=== PATIENT | male | born 1990 | race American Indian/Alaskan Native ===

== ENCOUNTER 2016-02-11 02:13 | Emergency (ER) | payer OTHER ==
[2016-02-11 02:36] VITALS: BP 153/91
[2016-02-11] MEDS ORDERED: MOTRIN ONE (03:20)
[2016-02-11] MEDS ORDERED: FLEXERIL ONE (03:20)
[2016-02-11] MEDS ORDERED: FLEXERIL PO ONE (03:24)
[2016-02-11] MEDS ORDERED: MOTRIN PO ONE (03:24)
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
== END 2016-02-11 04:57 | disposition home or self-care (01) ==
LOC: ED 02:13
DX: R07.81 Pleurodynia (principal); M25.50 Pain in unspecified joint; Z91.018 Allergy to other foods; V49.9XXA Car occupant (driver) (passenger) injured in unspecified traffic accident, initial encounter; Y92.488 Other paved roadways as the place of occurrence of the external cause; Y93.89 Activity, other specified; Y99.8 Other external cause status
CPT/HCPCS: 71020

== ENCOUNTER 2017-08-26 05:45 | Emergency (ER) | payer SELFPAY ==
[2017-08-26] MEDS ORDERED: TYLENOL ONE (05:50)
[2017-08-26 05:51] VITALS: BP 140/78
[2017-08-26] MEDS ORDERED: TYLENOL PO ONE (05:51)
[2017-08-26] MEDS ORDERED: XYLOCAINE 1% MPF 5 mL INFILTRATI ONE (09:36)
[2017-08-26] MEDS ORDERED: NORCO 5/325 PO ONE (09:54)
--- NOTE | 2017-08-26 09:59 | Emergency Department Report ---
ED ENT HPI - General Chief complaint: Dental/Oral Stated complaint: TOOTHACHE WITH FACIAL SWELLING Time Seen by Provider: 08/26/17 09:26 Source: patient Mode of arrival: Ambulatory Limitations: No Limitations - History of Present Illness Initial comments: Mr Chung is a 27 year-old man who presents with jaw swelling. Swelling over left lower jaw for one day. Painful. No troubel breathing. no trouble swallowing. No fever. No neck pain. Has not seen a dentist for this. No other complaints. - Related Data Previous Rx's Medication Instructions Recorded Last Taken Type Amoxicillin [Trimox CAP] 500 mg PO Q8H #30 capsule 09/30/15 Unknown Rx traMADol [Ultram 50 MG tab] 50 mg PO Q6HR PRN #15 tablet 09/30/15 Unknown Rx Cyclobenzaprine [Flexeril] 10 mg PO TID PRN #20 tablet 02/11/16 Unknown Rx Ibuprofen [Motrin 800 MG tab] 800 mg PO Q8HR PRN #20 tablet 02/11/16 Unknown Rx Allergies Allergy/AdvReac Type Severity Reaction Status Date / Time lactose Allergy Unknown Verified 01/30/15 19:21 ED Dental HPI - General Chief complaint: Dental/Oral Stated complaint: TOOTHACHE WITH FACIAL SWELLING Time Seen by Provider: 08/26/17 09:26 Source: patient Mode of arrival: Ambulatory Limitations: No Limitations - Related Data Previous Rx's Medication Instructions Recorded Last Taken Type Amoxicillin [Trimox CAP] 500 mg PO Q8H #30 capsule 09/30/15 Unknown Rx traMADol [Ultram 50 MG tab] 50 mg PO Q6HR PRN #15 tablet 09/30/15 Unknown Rx Cyclobenzaprine [Flexeril] 10 mg PO TID PRN #20 tablet 02/11/16 Unknown Rx Ibuprofen [Motrin 800 MG tab] 800 mg PO Q8HR PRN #20 tablet 02/11/16 Unknown Rx Allergies Allergy/AdvReac Type Severity Reaction Status Date / Time lactose Allergy Unknown Verified 01/30/15 19:21 ED Review of Systems ROS: Stated complaint: TOOTHACHE WITH FACIAL SWELLING Other details as noted in HPI Comment: All other systems reviewed and negative ED Past Medical Hx - Past Medical History Previous Medical History?: No - Surgical History Past Surgical History?: No - Social History Smoking Status: Never Smoker Substance Use Type: None - Medications Home Medications: Home Medications Medication Instructions Recorded Confirmed Last Taken Type Amoxicillin [Trimox CAP] 500 mg PO Q8H #30 capsule 09/30/15 Unknown Rx traMADol [Ultram 50 MG tab] 50 mg PO Q6HR PRN #15 tablet 09/30/15 Unknown Rx Cyclobenzaprine [Flexeril] 10 mg PO TID PRN #20 tablet 02/11/16 Unknown Rx Ibuprofen [Motrin 800 MG tab] 800 mg PO Q8HR PRN #20 tablet 02/11/16 Unknown Rx ED Physical Exam - General Limitations: No Limitations General appearance: alert, in no apparent distress - Head Head exam: Present: atraumatic, normocephalic - Eye Eye exam: Present: normal appearance, EOMI - ENT ENT exam: Present: normal exam, normal orophraynx, mucous membranes moist, other (tooth 18 fractured. gum line swelling, fluctuance. No oropharyngeal swelling. no cervical or submandibular LNs palpable/tender) - Neck Neck exam: Present: normal inspection, full ROM. Absent: tenderness, meningismus, lymphadenopathy, thyromegaly - Respiratory Respiratory exam: Present: normal lung sounds bilaterally. Absent: wheezes, rales, rhonchi, stridor - Cardiovascular Cardiovascular Exam: Present: regular rate, normal rhythm - Neurological Exam Neurological exam: Present: alert, oriented X3 - Psychiatric Psychiatric exam: Present: normal affect, normal mood - Skin Skin exam: Present: warm, dry, intact ED Course Vital Signs 08/26/17 05:48 Temperature 99.4 F Pulse Rate 84 Respiratory 16 Rate Blood Pressure 140/78 O2 Sat by Pulse 99 Oximetry - I & D Left Lower Jaw Type of Procedure: Simple Site: tooth 18 periapical abscess Blade Size: 18g needle Progress: 2mL 1% lidocaine without epi. 2mL pus expressed. tolerated procedure well ED Medical Decision Making - Medical Decision Making Mr Chung is a 27 year-old man who presents with dental abscess. no fever. No trouble swallowing. No oropharyngeal swelling, no neck swelling. Incised and drained per note. PCN 500mg QID x 7 days. DC to home. Critical care attestation.: If time is entered above; I have spent that time in minutes in the direct care of this critically ill patient, excluding procedure time. ED Disposition Clinical Impression: Dental abscess Disposition: DC-01 TO HOME OR SELFCARE Is pt being admited?: No Condition: Stable Instructions: Dental Abscess (ED) Referrals: PRIMARY CARE, [Primary Care Provider] - 3-5 Days
[2017-08-26] MEDS ORDERED: VEETIDS PO ONE (10:30)
== END 2017-08-26 10:15 | disposition home or self-care (01) ==
LOC: ED 05:45
DX: K04.7 Periapical abscess without sinus (principal); Z91.011 Allergy to milk products
CPT/HCPCS: 99282

== ENCOUNTER 2017-09-16 01:13 | Emergency (ER) | payer SELFPAY ==
[2017-09-16 01:31] VITALS: BP 116/62
[2017-09-16] MEDS ORDERED: MOTRIN PO ONE (05:26)
[2017-09-16] MEDS ORDERED: FLEXERIL PO ONE (05:27)
--- NOTE | 2017-09-16 06:25 | Emergency Department Report ---
ED Back Pain/Injury HPI - General Chief Complaint: Back Pain/Injury Stated Complaint: BACK PAIN Time Seen by Provider: 09/16/17 05:25 Source: patient Limitations: No Limitations - History of Present Illness Initial Comments: Patient 27-year-old male who presents for low back pain states he strained his back while trying to lift a heavy box pre-days ago pain described as spasm 14 and radiating to left lower leg pain relieved by rest pain exacerbated by prolonged standing and walking climbing stairs there is no weakness no numbness no paresthesias no loss or decrease in bowel or bladder function Complaint: back pain Onset/Timin -: Sudden, days(s) Similar Symptoms Previously: Yes Place: home Radiation: none Severity: moderate Severity scale (0 -10): 4 Quality: aching Consistency: intermittent Worsens With: other (rest ) Context: while lifting, turning/twisting, bending Associated Symptoms: weakness. denies: numbness, difficulty walking, cough, incontinence, fever/chills, headaches, abdominal pain, loss of appetite, seizure , shortness of breath, syncope Treatments Prior to Arrival: cold therapy, heat therapy, NSAIDS - Related Data Previous Rx's Medication Instructions Recorded Last Taken Type Amoxicillin [Trimox CAP] 500 mg PO Q8H #30 capsule 09/30/15 Unknown Rx traMADol [Ultram 50 MG tab] 50 mg PO Q6HR PRN #15 tablet 09/30/15 Unknown Rx Cyclobenzaprine [Flexeril] 10 mg PO TID PRN #20 tablet 02/11/16 Unknown Rx Ibuprofen [Motrin 800 MG tab] 800 mg PO Q8HR PRN #20 tablet 02/11/16 Unknown Rx Penicillin V Potassium 500 mg PO QID #28 tablet 08/26/17 Unknown Rx Cyclobenzaprine [Flexeril] 10 mg PO BID PRN #30 tablet 09/16/17 Unknown Rx Naproxen 500 mg PO BID #30 tablet 09/16/17 Unknown Rx Allergies Allergy/AdvReac Type Severity Reaction Status Date / Time lactose Allergy Unknown Verified 01/30/15 19:21 ED Review of Systems ROS: Stated complaint: BACK PAIN Other details as noted in HPI Constitutional: denies: chills, fever Eyes: denies: eye pain, eye discharge, vision change ENT: denies: ear pain, throat pain Respiratory: denies: cough, shortness of breath, wheezing Cardiovascular: denies: chest pain, palpitations Endocrine: no symptoms reported Gastrointestinal: denies: abdominal pain, nausea, diarrhea Genitourinary: denies: urgency, dysuria Musculoskeletal: back pain, joint swelling. denies: arthralgia Skin: denies: rash, lesions Neurological: denies: headache, weakness, paresthesias Psychiatric: denies: anxiety, depression Hematological/Lymphatic: denies: easy bleeding, easy bruising ED Past Medical Hx - Past Medical History Previous Medical History?: No - Surgical History Past Surgical History?: No - Social History Smoking Status: Current Every Day Smoker Substance Use Type: None - Medications Home Medications: Home Medications Medication Instructions Recorded Confirmed Last Taken Type Amoxicillin [Trimox CAP] 500 mg PO Q8H #30 capsule 09/30/15 Unknown Rx traMADol [Ultram 50 MG tab] 50 mg PO Q6HR PRN #15 tablet 09/30/15 Unknown Rx Cyclobenzaprine [Flexeril] 10 mg PO TID PRN #20 tablet 02/11/16 Unknown Rx Ibuprofen [Motrin 800 MG tab] 800 mg PO Q8HR PRN #20 tablet 02/11/16 Unknown Rx Penicillin V Potassium 500 mg PO QID #28 tablet 08/26/17 Unknown Rx Cyclobenzaprine [Flexeril] 10 mg PO BID PRN #30 tablet 09/16/17 Unknown Rx Naproxen 500 mg PO BID #30 tablet 09/16/17 Unknown Rx ED Physical Exam - General Limitations: No Limitations General appearance: alert, in no apparent distress - Head Head exam: Present: atraumatic, normocephalic - Eye Eye exam: Present: normal appearance, PERRL, EOMI Pupils: Present: normal accommodation - ENT ENT exam: Present: normal exam ED Course Vital Signs 09/16/17 01:29 Temperature 98.6 F Pulse Rate 62 Respiratory 16 Rate Blood Pressure 116/62 O2 Sat by Pulse 96 Oximetry Critical care attestation.: If time is entered above; I have spent that time in minutes in the direct care of this critically ill patient, excluding procedure time. ED Disposition Clinical Impression: Low back strain Qualifiers: Encounter type: initial encounter Qualified Code(s): S39.012A - Strain of muscle, fascia and tendon of lower back, initial encounter Disposition: TO HOME OR SELFCARE Is pt being admited?: No Does the pt Need Aspirin: No Condition: Good Instructions: Low Back Strain (ED), Core Strengthening Exercises (GEN) Prescriptions: Cyclobenzaprine [Flexeril] 10 mg PO BID PRN #30 tablet PRN Reason: Pain , Severe (7-10) Naproxen 500 mg PO BID #30 tablet Referrals: [facility] [Outside] - 3-5 Days Forms: Work/School Release Form(ED) Time of Disposition: 06:31
== END 2017-09-16 06:35 | disposition home or self-care (01) ==
LOC: ED 01:13
DX: S39.012A Strain of muscle, fascia and tendon of lower back, initial encounter (principal); F17.200 Nicotine dependence, unspecified, uncomplicated; Z91.09 Other allergy status, other than to drugs and biological substances; X50.0XXA Overexertion from strenuous movement or load, initial encounter; Y93.89 Activity, other specified; Y99.8 Other external cause status; Y92.009 Unspecified place in unspecified non-institutional (private) residence as the place of occurrence of the external cause
CPT/HCPCS: 99282